=== PATIENT | female | born 1950 | race Caucasian/White ===

== ENCOUNTER → 2016-06-16 | Outpatient (CLI) | payer OTHER | LOC: KOH-I 10:20 | DX: M54.5 Low back pain (principal); M51.36 Other intervertebral disc degeneration, lumbar region; M51.37 Other intervertebral disc degeneration, lumbosacral region | CPT/HCPCS: 72110 ==

== ENCOUNTER → 2020-04-30 | Day surgery (SDC) | payer OTHER ==
[~2020-04-30] MED LIST: BACTRIM DS TAB1 EACH PO; CEFUROXIME250 MG PO; COREG 25MG TAB25 MG PO; COZAAR100 MG PO; DILAUDID SQ; ECOTRIN81 MG PO; ENBREL50 MG/1 M1 SQ; FOSAMAX 10 MG T10 MG GT; HUMIRA40 MG/0.8 SQ; HYDROCHLOROTHIA25 MG PO; IMDUR ER TAB 6060 MG PO; IRON PO; LIPITOR TAB 2020 MG PO; MELATONIN10 M2 PO; NEXIUM40 MG PO; NORCO 10-325 T1 EACH PO; NORVASC 5 MG TAB5 MG PO; OMNICEF 300 MG300 MG PO; PREDNISONE5 MG PO; PROTONIX40 MG PO; VITAMIN C500 M4 PO; VITAMIN D21250 MCG PO; ZANAFLEX4 MG PO; ZOFRAN ODT 4 MG4 MG SL
== END | disposition home or self-care (01) ==
LOC: OR 06:38
DX: K25.7 Chronic gastric ulcer without hemorrhage or perforation (principal); K44.9 Diaphragmatic hernia without obstruction or gangrene; I10 Essential (primary) hypertension; I73.9 Peripheral vascular disease, unspecified; I25.10 Atherosclerotic heart disease of native coronary artery without angina pectoris; K21.9 Gastro-esophageal reflux disease without esophagitis; G89.29 Other chronic pain; M54.9 Dorsalgia, unspecified; D64.9 Anemia, unspecified; F10.21 Alcohol dependence, in remission; Z20.822 Contact with and (suspected) exposure to COVID-19; Z79.899 Other long term (current) drug therapy
CPT/HCPCS: J2704; J7040

== ENCOUNTER → 2020-11-13 | Outpatient (CLI) | payer OTHER, SELFPAY ==
[~2020-11-13] MED LIST changes: +ACTONEL150 MG PO; +CARAFATE1 GM PO; -DILAUDID SQ; +FENTANYL SQ; +HYDROCODON-ACE1 EAC6 PO; +LIPITOR80 MG PO; +MEDROL DOSEPAK 24 MG PO; +NITROSTAT0.4 MG SL; +NORVASC5 MG PO; +PROTONIX 40 MG40 M1 PO; +VITAMIN D2 PO; +XIIDRA 5% EYE DROPS EYEBOTH
[2020-11-13 12:45] LABS: RED BLOOD COUNT 4.02 M/UL (4.00-5.10); WHITE BLOOD COUNT 9.5 K/UL (4.5-11.0)
[2020-11-13 13:06] LABS: BUN/CREATININE RATIO 14 (0-10)
== END ==
LOC: OPSV2 11:30
PROVIDERS: Orthopaedic Surgery
DX: Z01.818 Encounter for other preprocedural examination (principal); M71.332 Other bursal cyst, left wrist
CPT/HCPCS: 36415; 80048; 85025; 93005

== ENCOUNTER → 2020-11-20 | Day surgery (SDC) | payer OTHER, SELFPAY ==
[~2020-11-20] VITALS: Ht 152.4 cm; Wt 47.2 kg
== END | disposition home or self-care (01) ==
LOC: OR 07:30
DX: M71.332 Other bursal cyst, left wrist (principal); M06.9 Rheumatoid arthritis, unspecified; E78.5 Hyperlipidemia, unspecified; I11.9 Hypertensive heart disease without heart failure; K25.9 Gastric ulcer, unspecified as acute or chronic, without hemorrhage or perforation; K21.9 Gastro-esophageal reflux disease without esophagitis; Z79.891 Long term (current) use of opiate analgesic; Z88.1 Allergy status to other antibiotic agents; Z20.822 Contact with and (suspected) exposure to COVID-19; Z95.5 Presence of coronary angioplasty implant and graft; Z90.49 Acquired absence of other specified parts of digestive tract
CPT/HCPCS: J0690; J1100; J2001; J2405; J2704; J3010; J7030

== ENCOUNTER → 2021-01-08 | Outpatient (CLI) | payer OTHER | LOC: EMI 08:04 | DX: M25.551 Pain in right hip (principal); M25.451 Effusion, right hip; R93.6 Abnormal findings on diagnostic imaging of limbs | CPT/HCPCS: 73721 ==

== ENCOUNTER → 2021-01-28 | Outpatient (CLI) | payer OTHER | LOC: KOH-I 15:11 | DX: N13.30 Unspecified hydronephrosis (principal); Q61.02 Congenital multiple renal cysts | CPT/HCPCS: 74176 ==

== ENCOUNTER → 2021-03-13 | Outpatient (CLI) | payer OTHER | LOC: CT 07:22 | DX: N28.1 Cyst of kidney, acquired (principal); N28.9 Disorder of kidney and ureter, unspecified | CPT/HCPCS: 36415; 74170; 82565; Q9967 ==

== ENCOUNTER → 2021-08-01 | Outpatient (CLI) | payer OTHER ==
[2021-08-01 09:38] LABS: HEMOGLOBIN 11.5 gm/dl (12.3-15.3); RED BLOOD COUNT 3.87 M/UL (4.00-5.10)
[2021-08-01 10:32] LABS: BUN/CREATININE RATIO 25 (0-10)
== END ==
LOC: ECHO 08:30
PROVIDERS: Nurse Practitioner
DX: I50.30 Unspecified diastolic (congestive) heart failure (principal); R06.02 Shortness of breath; I08.3 Combined rheumatic disorders of mitral, aortic and tricuspid valves
CPT/HCPCS: ECHO; 36415; 80053; 83735; 83880; 85025; 93306